=== PATIENT | male | born 1970 | race Two or more races ===

== ENCOUNTER 2016-12-24 17:05 | Emergency (ER) | payer MEDICAID ==
[~2016-12-24] VITALS: Ht 188 cm; Wt 91.6 kg
[2016-12-24 17:19] VITALS: BP 122/81
== END 2016-12-24 18:00 | disposition home or self-care (01) ==
LOC: ER 17:09
DX: F41.9 Anxiety disorder, unspecified (principal); F45.9 Somatoform disorder, unspecified
CPT/HCPCS: 99282; A4606; Z7610